=== PATIENT | female | born 1945 | race Caucasian/White ===

== ENCOUNTER 2017-01-21 11:55 | Day surgery (SDC) | payer MEDICARE, OTHER ==
[~2017-01-21] VITALS: Ht 157.5 cm; Wt 71.2 kg
[2017-01-21 13:15] VITALS: Ht 157.5 cm; Wt 71.2 kg
[2017-01-21] MEDS ORDERED: AMLO2.5T78 PO (13:33)
[2017-01-21] MEDS ORDERED: PRAV20TA2 PO (13:33)
[2017-01-21] MEDS ORDERED: LISI40TA9 PO (13:33)
[2017-01-21] MEDS ORDERED: HYDR25TA6 PO (13:33)
[2017-01-21] MEDS ORDERED: METO-336 PO (13:33)
[2017-01-21 13:47] VITALS: BP 169/77; PULSE 61; RESP 25
[2017-01-21] MEDS ORDERED: FENTAnyl 50 MCG/ML VIAL ONE (14:27)
--- NOTE | 2017-01-21 14:27 | OPPN ---
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
[2017-01-21] MEDS ORDERED: MIDAZOLAM 1 MG/ML 2 ML INJ ONE (14:28)
--- NOTE | 2017-01-21 17:36 | GILP ---
DATE OF PROCEDURE: 01/21/2017 ENDOSCOPIST: Joseph Polo MD PROCEDURE PERFORMED: Colonoscopy. PREOPERATIVE DIAGNOSIS: Screening colonoscopy. POSTOPERATIVE DIAGNOSES: 1. Colonoscopy all the way to the cecum. 2. Internal hemorrhoids. 3. No colon neoplasm was identified. INDICATION: Ms. Jeanna Rios is a 71-year-old female patient who was scheduled for screening colonoscopy. The procedure and possible complications were well explained to the patient. She understood and consented to the procedure. DESCRIPTION OF PROCEDURE: Under the influence of fentanyl and Versed, the colonoscope was carefully introduced the rectum. Under direct vision, it was advanced all the way to the cecum. FINDINGS: The patient had internal hemorrhoids. No colon neoplasm was identified. She tolerated the procedure very well, and there was no complication from the procedure. At the end of procedure, she was awake with stable vital signs and she was discharged home in the care of her family. IMPRESSION: Please see postop diagnoses. PLAN: Next screening colonoscopy in 10 years. Dictated By: MD MARIZA Fisher/maxwell/adalberto /Document#: [id number] CC: Joseph Polo MD;*EndCC*
== END 2017-01-21 16:02 | disposition home or self-care (01) ==
LOC: GIL 11:55
PROVIDERS: ATTEND Internal Medicine Gastroenterology
DX: Z12.11 Encounter for screening for malignant neoplasm of colon (principal); K64.8 Other hemorrhoids
CPT/HCPCS: 45378; J2250; J3010